=== PATIENT | male | born 1975 | race Caucasian/White ===

== ENCOUNTER 2021-11-01 19:12 | Emergency (ER) | payer SELFPAY ==
[~2021-11-01] VITALS: Ht 170.2 cm; Wt 77.1 kg
[2021-11-01 19:30] VITALS: BP_SYST 132
[2021-11-01] MEDS ORDERED: TETRACAINE HCL/PF 0.5% OPHTHALMIC DROPS 4 ML OP ONE (21:45)
[2021-11-01] MEDS ORDERED: FLUORESCEIN SODIUM 1 MG OPHTHALMIC STRIP OP ONE (21:45)
[2021-11-01 21:50] VITALS: BP_SYST 132
[2021-11-01] MEDS ORDERED: BACITRACIN 1 GM OINT TP ONE (21:50)
== END 2021-11-01 22:16 ==
LOC: SED 19:12
DX: S00.211A Abrasion of right eyelid and periocular area, initial encounter (principal); X03.4XXA Hit by object due to controlled fire, not in building or structure, initial encounter; Y93.89 Activity, other specified; Y92.89 Other specified places as the place of occurrence of the external cause; Y99.8 Other external cause status
CPT/HCPCS: 99283